=== PATIENT | male | born 1935 | race Caucasian/White ===

== ENCOUNTER 2016-12-12 00:13 | Day surgery (SDC) | payer MEDICARE, OTHER ==
[~2016-12-12] VITALS: Ht 177.8 cm; Wt 68.2 kg
[2016-12-12] VITALS (10 sets, daily range): BP systolic 137–191; BP diastolic 57–90; PULSE 60–85; RESP 14–20; O2SAT 92–99
[~2016-12-12 00:13] MED LIST: AMOX500C2 PO; ASPI325T32 PO; FERR324T6 PO; FLAX100010 PO; LISI10TA PO; SIMV20TA4 PO; VIT1CAPS46 PO
[2016-12-12] MEDS ORDERED: Vancomycin 1 Gm/200 mL NS Premix IV SCH (08:18)
[2016-12-12] MEDS ORDERED: 0.9% Sodium Chloride 1,000 ML IV SCH (08:20)
[2016-12-12] MEDS ORDERED: Bupivacaine-MPF 0.5% 30 mL Inj ONE (12:02)
[2016-12-12] MEDS ORDERED: 0.9% Sodium Chloride 250 ML ONE (12:02)
[2016-12-12] MEDS ORDERED: Vancomycin 1,000 mg Inj ONE (12:02)
[2016-12-12] MEDS ORDERED: 0.9% Sodium Chloride 500 ML ONE (12:02)
[2016-12-12] MEDS ORDERED: Heparin 5,000 Unit/mL Inj ONE (12:03)
[2016-12-12 12:44] LABS: BASOPHILS % (AUTO) 0.7 % (0-3); EOSINOPHILS % (AUTO) 3.7 % (0-5); MONOCYTES % (AUTO) 10.9 % (4-12); Mean Corpuscular Hemoglobin 26.6 pg (27.0-35.0); NEUTROPHILS % (AUTO) 67.1 % (40-74); Platelet Count 229 bil/L (150-400)
[2016-12-12] MEDS ORDERED: LIP40 PO (13:12)
[2016-12-12] MEDS ORDERED: fentaNYL-PF 50 mCg/mL 2 mL Inj ONE (14:58)
[2016-12-12] MEDS ORDERED: hydrALAZINE 20 mg/mL Inj ONE (15:24)
[2016-12-12] MEDS ORDERED: Ondansetron 2 mg/mL 2 mL Inj IVPUSH PRN (16:10)
--- NOTE | 2016-12-12 16:48 | OP ---
[address] [address] OPERATIVE REPORT PATIENT: MACRINA MUNGUIA : 1935 MR#: [id number] ADMIT: 12/12/2016 JOB ID: [id number] DATE OF SURGERY: 12/12/2016 PREOPERATIVE DIAGNOSIS(ES): Sick sinus syndrome. POSTOPERATIVE DIAGNOSIS(ES): Sick sinus syndrome. PROCEDURES PERFORMED: 1. Dual-chamber pacemaker implantation. 2. Fluoroscopy. SURGEON: John Butler MD, electrophysiology attending. STRATEGIC ACCOUNT EXECUTIVE: Dina Cisneros IMPLANTED DEVICES: 1. [employer] pulse generator, model NP7241, serial #[id number]. 2. Right atrial lead [employer], 2088TC, 52 cm, serial #[id number]. 3. RV lead [employer], 2088TC, 58 cm, serial #[id number]. ANESTHESIA: Bolus dosing of Versed and fentanyl were utilized for an appropriate level of sedation. INDICATION: The patient is a pleasant 81-year-old man with coronary disease, status post bypass grafting, bioprosthetic mitral valve replacement, mild LV systolic dysfunction, and baseline bifascicular block. He had documented sick sinus syndrome. After discussion of risks benefits of pacemaker implantation, he opted to proceed. PROCEDURAL DESCRIPTION: Following informed signed consent, the patient was taken to the EP laboratory in a fasting nonsedated state where he was prepped and draped in usual sterile fashion. The left infraclavicular region was infiltrated with 40 cc of a 50/50 mixture of bupivacaine and lidocaine. Once adequate anesthesia had been achieved, a 3 cm transverse incision was performed 2 cm below the left clavicle. Dissection was carried down to the pectoralis fascia. A pocket was then fashioned using a combination of electrocautery and blunt dissection. Once adequate hemostasis had been achieved, access to the left axillary vein was gotten over the first rib with a micropuncture needle twice to deploy two 0.035, 3 mm J guidewires. Over the first of these, a 6-Serbian tear-away sheath was advanced. Once the guidewire was removed, an active fixation was advanced to the RV outflow tract and ultimately the RV apex. The lead was affixed in position using associated fixation sleeves. It was connected to the external analyzer and demonstrated appropriately sensed R waves, impedance. Capture threshold was checked at 10 V, and there was no evidence of diaphragmatic stimulation. Attention was now paid to the right atrial lead. Over the previously deployed J guidewire, another 6-Serbian tear-away sheath was advanced. Once the guidewire was removed, an active fixation screw was advanced to the right atrial appendage and affixed in position using associated active fixation screw. The lead was connected to the external analyzer and demonstrated appropriately sensed P waves, impedance, capture threshold. Lead was checked at 10 V, and there was no evidence of diaphragmatic stimulation. Once the position and redundancy of both leads had been confirmed in multiple fluoroscopic views, the leads were anchored to the prepectoral fascia using the associated anchoring sleeves and 2-0 Ethibond sutures. The pocket was then copiously irrigated with antibiotic solution. The leads were connected to a generator and the generator placed into the pocket. It was affixed to the floor of the pocket using 1-0 Ti-Cron suture. The incision was then closed with running layers of absorbable suture. The wound was dressed with skin adhesive and a small dressing. At the end of procedure, needle, sponge, and instrument counts were all correct. COMPLICATIONS: None. ESTIMATED BLOOD LOSS: Negligible. DEVICE MEASURED DATA: 1. Right atrial lead 3.1 mV, 430 ohms, 0.75 V at 0.4 msec. 2. RV lead 5.1 mV, 450 ohms, 0.5 V at 0.4 msec. FINAL PROGRAM PARAMETERS: DDD 60-130 beats per minute. IMPRESSION: Successful dual-chamber pacemaker implantation. PLAN: 1. Stat portable chest x-ray. 2. PA and lateral chest x-ray in morning. 3. Device interrogation in the morning. 4. IV vancomycin through tomorrow. 5. Doxycycline x7 days starting tomorrow. 6. Wound check in one week. ATTENDING STATEMENT: John Butler MD, electrophysiology attending, was present for and supervised/performed all aspects of this procedure.
[2016-12-12] MEDS: HYDROcodone-APAP 5-325 mg Tablet PO PRN ×2 (17:12→22:03)
[2016-12-12] MEDS: 0.9% Sodium Chloride 1,000 ML IV SCH (18:00)
--- NOTE | 2016-12-12 18:38 | NUR ---
report called and care transferred to melecio caruso. left chest dual chamber pacemaker cdi, pt reporting 1/10 low back pain with movement, shoulder sling and ice pack in place. md aware of pts cont htn 170's sbp. all belongings in duffel bag and pt belongings bag with pt at time of transfer. iv's are both SL at time of transfer. pt is a&ox3.
--- NOTE | 2016-12-12 18:39 | NUR ---
Pt admit to [facility] Pt arrived to [facility] from [facility] alert & oriented, reporting 1/10 pain at incision site, SL & on RA, all belongings in room. Pt resting comfortably in bed eating dinner.
--- NOTE | 2016-12-12 19:36 | DRSVH ---
PROCEDURE: X-RAY CHEST ONE VIEW, PORTABLE ([id number]) INDICATIONS: For new leads placed TECHNIQUE: One view of the chest was acquired. COMPARISON: None. FINDINGS: Surgical changes and devices: Median sternotomy. Left-sided pacer. Lungs and pleura: No pneumothorax. Small left pleural effusion. Mild patchy opacity at the left base . Mediastinum: Mediastinal contours appear normal. Heart size is normal. Bones and chest wall: No suspicious bony lesions. Overlying soft tissues appear unremarkable. IMPRESSION: Left lung base atelectasis versus pneumonia. Dictated by: Raman Lind M.D. on 12/12/2016 at 19:34 Approved by: Raman Lind M.D. on 12/12/2016 at 19:35
[2016-12-13 01:38] VITALS: BP 150/68; PULSE 58; RESP 20; O2SAT 98
[2016-12-13] MEDS: 0.9% Sodium Chloride 1,000 ML IV SCH (02:10)
[2016-12-13] MEDS ORDERED: Vancomycin Inj 1,000 MG in IV Premix 1 EACH IV ONE (04:10)
[2016-12-13 04:50] VITALS: BP 169/77; PULSE 80; RESP 20; O2SAT 97
[2016-12-13 05:25] VITALS: PULSE 82
[2016-12-13 08:00] VITALS: PULSE 71
--- NOTE | 2016-12-13 08:23 | DIS ---
[address] [address] DISCHARGE SUMMARY PATIENT: MACRINA MUNGUIA : 1935 MR#: [id number] ADMIT: 12/12/2016 JOB ID: [id number] DIS: 12/13/2016 DISCHARGE DIAGNOSES: 1. Sick sinus syndrome status post dual-chamber pacemaker implantation. 2. Coronary artery disease, status post bypass grafting. 3. Mitral valve replacement with a bioprosthesis. 4. Dyslipidemia. DISCHARGE MEDICATIONS: 1. Doxycycline 100 mg p.o. daily for one week. 2. Amlodipine 5 mg p.o. daily (new medication). 3. Aspirin 325 mg p.o. daily. 4. Ferrous sulfate 325 mg p.o. t.i.d. 5. Atorvastatin 40 mg p.o. q.h.s. CONSULTATIONS: None. PROCEDURES PERFORMED: Dual-chamber pacemaker implantation. IDENTIFICATION/BRIEF HOSPITAL COURSE: The patient is a pleasant 81-year-old man with coronary artery disease, status post bypass grafting, bioprosthetic mitral valve replacement and sick sinus syndrome. He was admitted for a dual-chamber pacemaker implantation which he underwent successfully and without event. He remained hemodynamically stable and asymptomatic overnight. His chest radiograph showed no pneumothorax and stable lead positions. His device interrogation is pending. He will be discharged home for close followup. DISPOSITION: To home with family. RESTRICTIONS: Standard post implant precautions. DIET: Cardiac diet. FOLLOWUP: One week followup in pacemaker clinic. Six week follow up with Benjamín Bautista.
[2016-12-13] MEDS ORDERED: [UNRECOGNIZED DRUG - OTHER] PO SCH (08:30)
--- NOTE | 2016-12-13 10:43 | NUR ---
Discharge Two IV's discontinued fully intact. Pacemaker information given to patient and friend who is at bedside. Patient verbalizes understanding and verbalizes plan of care. All personal belongings given to patient including ID card for pacemaker. Patient ambulated off of unit to friend's car with no s/s of distress.
--- NOTE | 2016-12-13 11:03 | DRSVH ---
PROCEDURE: X-RAY CHEST, TWO VIEWS ([id number]) INDICATIONS: FOR NEW LEAD PLACEMENT. TECHNIQUE: Two views of the chest were acquired. COMPARISON: [facility], CR, XR CHEST 1VW (PORTABLE), 12/12/2016, 16:47. FINDINGS: Surgical changes and devices: Stable left pacer. Median sternotomy and valvular replacement. Lungs and pleura: Small pleural effusions redemonstrated. No pneumothorax. Mediastinum: Mediastinal contours are normal. Heart size is normal. Bones and chest wall: No suspicious bony abnormalities. Soft tissues appear unremarkable. IMPRESSION: 1. Stable chest status post pacer placement. Dictated by: Erik PANDA Interpreted: Mercedes Jalloh MD on 12/13/2016 at 9:59 Transcribed by: JULI on 12/13/2016 at 14:03 Approved by: Mercedes Jalloh MD, PhD on 12/13/2016 at 16:35
== END 2016-12-13 10:47 | disposition home or self-care (01) ==
LOC: SOUO 00:13 → MPC 18:28 → SOUO 12-13 10:47
PROVIDERS: ATTEND Internal Medicine Cardiovascular Disease
DX: I49.5 Sick sinus syndrome (principal); Z95.1 Presence of aortocoronary bypass graft; I45.10 Unspecified right bundle-branch block; I25.10 Atherosclerotic heart disease of native coronary artery without angina pectoris; I25.2 Old myocardial infarction; E78.5 Hyperlipidemia, unspecified; Z95.3 Presence of xenogenic heart valve; Z79.82 Long term (current) use of aspirin
CPT/HCPCS: 33208; 36415; 71010; 71020; 80048; 85025; 85610; 93005; 99152; 99153; C1769; C1785; C1892; C1898; J0360; J1644; J2250; J3010; J3370; J7040; J7050